=== PATIENT | female | born 1955 | race Caucasian/White ===

== ENCOUNTER 2017-06-22 05:20 | Day surgery (SDC) | payer OTHER ==
[~2017-06-22] VITALS: Ht 165.1 cm; Wt 85.7 kg
[2017-06-22] VITALS (10 sets, daily range): BP systolic 124–156; BP diastolic 56–86
--- NOTE | ~2017-06-22 | O ---
[facility] [place] [address] OPERATIVE REPORT Name: JD PALOMARES Room #: 150-3 [facility] M..#: [id number] Admission: 06/22/17 Attend Phys: Julian Bass MD Discharge: Date of : 51 Report #: [id number] THIS REPORT FOR: //name// CC: Julian LÓPEZ DATE OF SERVICE: 06/22/2017 PREOPERATIVE DIAGNOSIS: Right lower extremity wound contracture. POSTOPERATIVE DIAGNOSIS: Right lower extremity wound contracture. PROCEDURE: Right lower extremity revision knasz-yuk-yaby amputation. SURGEON: Julian Bass MD ANESTHESIA: General. ESTIMATED BLOOD LOSS: Minimal. DRAINS: No drains. TOURNIQUET TIME: 45 minutes. DESCRIPTION OF PROCEDURE: The patient was brought to the operating room where she was placed under general anesthesia. Once under adequate general anesthesia, her right lower extremity was prepped and draped in sterile manner. Extremity was elevated and a tourniquet placed to 300 mmHg. An elliptical incision based around the patient's previous scar was then made, this ellipsed approximately 2 inches of the skin. Exposure of the distal bone of the tibia and the fibula was then achieved. Approximately 3-cm of tibia and 2-cm of fibula were then resected with the oscillating saw. The muscular flap was then repositioned over the distal tibia and any vessels were either cauterized or suture ligated with 0 silk suture. The muscular flap was then repositioned over the distal tibia with #1 Vicryl suture. The wound was irrigated once again copiously and one Vicryl suture was used in the deep fascial layer, 2-0 Vicryl in subcutaneous tissues and dirk were used for the skin. The wounds were dressed with Xeroform, 4x4s, and sterile soft compressive dressing was placed. Tourniquet was let down approximately 45 minutes. There were no complications from the procedure. The patient tolerated the procedure well and went to the recovery room without incident. [address] [address] OPERATIVE REPORT Name: JD PALOMARES Room #: 150-3 [facility]..#: [id number] Admission: 06/22/17 Attend Phys: Julian Bass MD Discharge: Date of : 51 Report #: [id number] TERRA[employer] MECHANIC HELPER: LALY Cui, critical for positioning and safe performance of the procedure. By: [id number] Jluian Bass MD /nt
--- NOTE | ~2017-06-22 | S ---
[facility] [place] [address] [place] [address] SURGICAL PATH RPT PROCEDURE Name: JD PALOMARES Room #: [facility]P [facility]..#: [id number] Admission: 06/22/17 Date of : 51 Discharge: 06/23/17 Report #: [id number] Path Case #: [id number] PATHOLOGY REPORT COLLECTION DATE: 06/22/2017 RECEIVED DATE: 06/22/2017 SUBMITTING PHYS: Dr. Julian Bass OTHER PHYS: Dr. Abby Charlton SPECIMEN(S) RECEIVED: A.Revision right BKA * * * * * * * * * * * * FINAL DIAGNOSIS: Below knee amputation, revision: - Fragments of skin and subcutaneous tissue associated with reparative changes as well as granulation tissue, consistent with the provided history of revision. - Fragments of marrow from large bone fragment showing trilineage hematopoiesis as well as fatty replacement. (IUV:mgr; 06/23/2017) PATHOLOGIST: Talita Mariscal M.D. REPORT ELECTRONICALLY SIGNED BY: Talita Mariscal M.D. DATE/TIME: 06/23/2017 15:56 * * * * * * * * * * * * GROSS PATHOLOGY: A. Received in formalin labeled "Jd Palomares, revision right BKA" and consists of 3 segments of reddy-white skin ranging in size from 7.8 x 2.5 x 1.0 cm 212.0 x 3.5 x 0.9 cm and 2 bone fragments. The first is irregularly shaped measuring 4.0 x 2.0 x 0.6 cm. The second is cylindrical and measures 3.5 cm in length by 2.7 cm in diameter. The epidermal surfaces are grossly unremarkable. The subcutaneous tissue is soft to fibrous, pink, carreno, and yellow. An ulcer is not grossly identified. Necrosis is not grossly identified. [employer] sections submitted A1-A2. A1 soft tissue/skin A2 marrow of large bone fragment (HERVE; 06/22/2017) CLINICAL HISTORY: Right below knee amputation ulcer INITIAL CPT CODE(S): [facility] [place] [address] SURGICAL PATH RPT PROCEDURE Name: MARIELLEJD Room #: [facility] M.R.#: [id number] Admission: 06/22/17 Date of : 51 Discharge: 06/23/17 Report #: [id number] Path Case #: [id number]; [id number] Professional services performed by [facility] at [address] , [place] [address] Technical services performed by [facility] at [address] [place] [address], [address] [address]. [facility] [address] [place] [address] PHONE: [phone] DIRECTOR: John Alvarado M.D. * * * END OF REPORT * * *
[~2017-06-22 05:20] MED LIST: ACEBUTOLOL HCL200 MG PO; ADIPEX-P37.5 MG PO; AMITRIPTYLINE H25 M3 PO; CENTRUM SILVER1 EAC4 PO; CYMBALTA60 MG PO; DEXILANT60 MG PO; DULCOLAX STOOL100 MG PO; ESTROVEN 155 M155 MG PO; FISH OIL 1,001000 M2 PO; GABAPENTIN800 M1 PO; KEFLEX500 M1 PO; MOBIC7.5 MG PO; MS CONTIN15 MG PO; OMEPRAZOLE40 MG PO; OXYBUTYNIN 5 MG5 M2 PO; PERCOCET 10-321 EACH PO; PERCOCET PO; PROBIOTIC1 EAC1 PO; SENNA8.6 MG PO; SENOKOT8.6 MG PO; SYNTHROID50 MCG PO; ZANTAC 150MG T150 MG PO; ZOFRAN ODT4 MG PO
[2017-06-23 05:29] VITALS: BP 124/53
[2017-06-23 06:53] LABS: HEMATOCRIT 30.5 % (37.0-47.0); HEMOGLOBIN 9.8 gm/dL (12.0-15.0)
[2017-06-23 06:54] LABS: POTASSIUM 3.9 mmol/L (3.5-5.1)
[2017-06-23 07:57] VITALS: BP 108/38
[2017-06-23] MEDS ORDERED: PERCOCET 7.5-31 EACH PO (08:18)
[2017-06-23 08:52] VITALS: BP 108/38
== END 2017-06-23 13:10 | disposition home or self-care (01) ==
LOC: OR 05:20 → TBA 05:21 → OR 09:43 → 4N 10:02 → OR 12:26 → ENTRNSPT 06-23 12:56 → EDTRNSPTSTS 06-23 12:57 → OR 06-23 13:10
PROVIDERS: Orthopaedic Surgery Foot and Ankle Surgery
DX: L90.5 Scar conditions and fibrosis of skin (principal); Z89.511 Acquired absence of right leg below knee; I10 Essential (primary) hypertension; K21.9 Gastro-esophageal reflux disease without esophagitis; Z90.710 Acquired absence of both cervix and uterus; Z90.49 Acquired absence of other specified parts of digestive tract; G25.81 Restless legs syndrome
CPT/HCPCS: 50010; 50101; 50386; 51412; 53000; 56524; 56525; 57091; 62110; 62900; 70005

== ENCOUNTER → 2017-08-04 | Outpatient (CLI) | payer OTHER ==
[~2017-08-04] MED LIST changes: +PERCOCET 7.5-31 EACH PO
== END ==
LOC: HYPER 06:56
DX: T87.89 Other complications of amputation stump (principal); L90.5 Scar conditions and fibrosis of skin; R26.2 Difficulty in walking, not elsewhere classified; R29.3 Abnormal posture; M47.892 Other spondylosis, cervical region; G25.81 Restless legs syndrome; M79.604 Pain in right leg; M79.671 Pain in right foot; G89.29 Other chronic pain; I10 Essential (primary) hypertension; K21.9 Gastro-esophageal reflux disease without esophagitis; M19.90 Unspecified osteoarthritis, unspecified site; Z90.710 Acquired absence of both cervix and uterus; Y83.5 Amputation of limb(s) as the cause of abnormal reaction of the patient, or of later complication, without mention of misadventure at the time of the procedure

== ENCOUNTER → 2017-08-18 | Outpatient (CLI) | payer OTHER | LOC: HYPER 06:39 | DX: T81.4XXD Infection following a procedure, subsequent encounter (principal); T87.9 Unspecified complications of amputation stump; L90.5 Scar conditions and fibrosis of skin; R26.2 Difficulty in walking, not elsewhere classified; R29.3 Abnormal posture; M47.892 Other spondylosis, cervical region; G25.81 Restless legs syndrome; M79.604 Pain in right leg; M79.671 Pain in right foot; G89.29 Other chronic pain; I10 Essential (primary) hypertension; K21.9 Gastro-esophageal reflux disease without esophagitis; M19.90 Unspecified osteoarthritis, unspecified site; Z90.710 Acquired absence of both cervix and uterus; Z89.511 Acquired absence of right leg below knee; Y83.5 Amputation of limb(s) as the cause of abnormal reaction of the patient, or of later complication, without mention of misadventure at the time of the procedure ==

== ENCOUNTER → 2017-09-22 | Outpatient (CLI) | payer OTHER | LOC: HYPER 06:50 | DX: T87.81 Dehiscence of amputation stump (principal); T81.4XXA Infection following a procedure, initial encounter; B99.8 Other infectious disease; I10 Essential (primary) hypertension; M47.892 Other spondylosis, cervical region; K21.9 Gastro-esophageal reflux disease without esophagitis; G89.29 Other chronic pain; M19.90 Unspecified osteoarthritis, unspecified site; Z90.710 Acquired absence of both cervix and uterus; Z89.511 Acquired absence of right leg below knee; Y83.5 Amputation of limb(s) as the cause of abnormal reaction of the patient, or of later complication, without mention of misadventure at the time of the procedure ==

== ENCOUNTER → 2017-10-22 | Outpatient (CLI) | payer OTHER | LOC: HYPER 06:58 | DX: T87.81 Dehiscence of amputation stump (principal); I10 Essential (primary) hypertension; K21.9 Gastro-esophageal reflux disease without esophagitis; G89.29 Other chronic pain; M47.892 Other spondylosis, cervical region; M19.90 Unspecified osteoarthritis, unspecified site; Z90.710 Acquired absence of both cervix and uterus; Z89.511 Acquired absence of right leg below knee; Y83.5 Amputation of limb(s) as the cause of abnormal reaction of the patient, or of later complication, without mention of misadventure at the time of the procedure ==

== ENCOUNTER → 2017-10-27 | Outpatient (CLI) | payer OTHER | LOC: MRI 08:14 | DX: M79.604 Pain in right leg (principal); Z89.511 Acquired absence of right leg below knee ==

== ENCOUNTER → 2017-11-02 | Outpatient (CLI) | payer OTHER | LOC: HYPER 06:58 | DX: T87.89 Other complications of amputation stump (principal); T81.4XXD Infection following a procedure, subsequent encounter; L90.5 Scar conditions and fibrosis of skin; R26.2 Difficulty in walking, not elsewhere classified; R29.3 Abnormal posture; M47.892 Other spondylosis, cervical region; G25.81 Restless legs syndrome; G89.29 Other chronic pain; I10 Essential (primary) hypertension; K21.9 Gastro-esophageal reflux disease without esophagitis; M19.90 Unspecified osteoarthritis, unspecified site; Z90.710 Acquired absence of both cervix and uterus; Y83.5 Amputation of limb(s) as the cause of abnormal reaction of the patient, or of later complication, without mention of misadventure at the time of the procedure ==

== ENCOUNTER → 2017-11-09 | Outpatient (CLI) | payer OTHER | LOC: HYPER 06:55 | DX: T87.81 Dehiscence of amputation stump (principal); T81.4XXD Infection following a procedure, subsequent encounter; L90.5 Scar conditions and fibrosis of skin; R26.2 Difficulty in walking, not elsewhere classified; R29.3 Abnormal posture; M47.892 Other spondylosis, cervical region; G25.81 Restless legs syndrome; G89.29 Other chronic pain; I10 Essential (primary) hypertension; K21.9 Gastro-esophageal reflux disease without esophagitis; M19.90 Unspecified osteoarthritis, unspecified site; Z90.710 Acquired absence of both cervix and uterus; Y83.5 Amputation of limb(s) as the cause of abnormal reaction of the patient, or of later complication, without mention of misadventure at the time of the procedure ==

== ENCOUNTER → 2018-06-04 | Outpatient (CLI) | payer OTHER | LOC: HYPER 08:06 | DX: T87.43 Infection of amputation stump, right lower extremity (principal); G25.81 Restless legs syndrome; E07.89 Other specified disorders of thyroid; I10 Essential (primary) hypertension; K21.9 Gastro-esophageal reflux disease without esophagitis; M19.90 Unspecified osteoarthritis, unspecified site; M47.892 Other spondylosis, cervical region; R26.9 Unspecified abnormalities of gait and mobility; Z90.710 Acquired absence of both cervix and uterus; Y83.5 Amputation of limb(s) as the cause of abnormal reaction of the patient, or of later complication, without mention of misadventure at the time of the procedure ==

== ENCOUNTER → 2018-06-18 | Outpatient (CLI) | payer OTHER | LOC: HYPER 08:31 | DX: T87.89 Other complications of amputation stump (principal); E07.89 Other specified disorders of thyroid; G25.81 Restless legs syndrome; I10 Essential (primary) hypertension; K21.9 Gastro-esophageal reflux disease without esophagitis; M47.892 Other spondylosis, cervical region; M19.90 Unspecified osteoarthritis, unspecified site ==

== ENCOUNTER → 2018-07-09 | Outpatient (CLI) | payer OTHER | LOC: HYPER 07-05 13:41 | DX: T87.89 Other complications of amputation stump (principal); E07.89 Other specified disorders of thyroid; G25.81 Restless legs syndrome; I10 Essential (primary) hypertension; K21.9 Gastro-esophageal reflux disease without esophagitis; M47.892 Other spondylosis, cervical region; M19.90 Unspecified osteoarthritis, unspecified site; Y83.5 Amputation of limb(s) as the cause of abnormal reaction of the patient, or of later complication, without mention of misadventure at the time of the procedure ==

== ENCOUNTER → 2018-07-15 | Outpatient (CLI) | payer OTHER | LOC: HYPER 07:10 | DX: T87.89 Other complications of amputation stump (principal); K21.9 Gastro-esophageal reflux disease without esophagitis; G25.81 Restless legs syndrome; I10 Essential (primary) hypertension; E07.89 Other specified disorders of thyroid; M47.892 Other spondylosis, cervical region; M19.90 Unspecified osteoarthritis, unspecified site; Y83.5 Amputation of limb(s) as the cause of abnormal reaction of the patient, or of later complication, without mention of misadventure at the time of the procedure ==